=== PATIENT | female | born 1955 | race African-American/Black ===

== ENCOUNTER 2017-04-14 05:56 | Day surgery (SDC) | payer BC ==
--- NOTE | ~2017-04-14 | EGD ---
EGD REPORT [facility] [address] [address] NAME: VIDHI SOLIS : [birth year] STATUS : REG [place]#: [id number] AGE: 61 ADM/REG DATE : 04/14/17 MR#: [id number] REPORT SERV DATE: 04/14/17 DICTATED BY: DATE: REPORT STATUS : Draft TRANSCRIBED BY: [employer] DATE: 04/14/17 Endoscopy Center Patient Name: Vidhi Solis Date of : 1955 Attending MD: KILLIAN AMAYA MD Procedure Date No Time: 04/14/2017 Procedure: Upper GI endoscopy Indications: Dysphagia, Reflux esophagitis Medicines: Monitored Anesthesia Care Complications: No immediate complications. Procedure: Pre-Anesthesia Assessment: - ASA Grade Assessment: II - A patient with mild systemic disease. After obtaining informed consent, the endoscope was passed under direct vision. Throughout the procedure, the patient's blood pressure, pulse, and oxygen saturations were monitored continuously. The GIF [id number] was introduced through the mouth, and advanced to the third part of duodenum. The upper GI endoscopy was accomplished without difficulty. The patient tolerated the procedure well. Findings: A medium-sized hiatus hernia was present. LA Grade B (one or more mucosal breaks greater than 5 mm, not extending between the tops of two mucosal folds) esophagitis was found in the lower third of the esophagus. A benign-appearing, intrinsic mild stenosis measuring less than one cm (in length) was found at the gastroesophageal junction and was traversed. Biopsies were taken with a cold forceps for histology. A guidewire was placed and the scope was withdrawn. Dilation was performed with a Savary dilator with no resistance at 51 Fr and no resistance at 54 Fr. A single localized small erosion was found in the prepyloric region of the stomach. Biopsies were taken with a cold forceps for histology. No other significant abnormalities were identified in a careful examination of the stomach. There is no endoscopic evidence of ulceration or varices in the entire examined stomach. The examined duodenum was normal. There is no endoscopic evidence of inflammation, mucosal abnormalities or ulceration in the entire examined duodenum. The cardia and gastric fundus were otherwise normal on retroflexion. Impression: - Hiatus hernia. EGD REPORT [address] [place]. [address] NAME: VIDHI SOLIS : [birth year] [place] [facility] [place] [id number] AGE: 61 ADM/REG DATE : 04/14/17 MR#: [id number] REPORT SERV DATE: 04/14/17 DICTATED BY: DATE: REPORT STATUS : Draft TRANSCRIBED BY: [employer] DATE: 04/14/17 - LA Grade B reflux esophagitis. - Benign-appearing esophageal stricture. Biopsied. Dilated. - Erosive gastropathy. Biopsied. - Normal examined duodenum. Recommendation: - Patient has a contact number available for emergencies. The signs and symptoms of potential delayed complications were discussed with the patient. Return to normal activities tomorrow. Written discharge instructions were provided to the patient. - Return to previous diet. - Discharge patient to home. - Change Prilosec (omeprazole) to pantoprazole 40 mg twice daily. It is essential that you take the medication in order for the esophagus to heal and stay healed, to prevent scar tissue build up and cancer risk. - Await pathology results. Procedure Code(s): --- Professional --- 76511, Esophagogastroduodenoscopy, flexible, transoral; with insertion of guide wire followed by passage of dilator(s) through esophagus over guide wire 98364, Esophagogastroduodenoscopy, flexible, transoral; with biopsy, single or multiple Diagnosis Code(s): --- Professional --- K44.9, Diaphragmatic hernia without obstruction or gangrene K21.0, Gastro-esophageal reflux disease with esophagitis K22.2, Esophageal obstruction K31.9, Disease of stomach and duodenum, unspecified R13.10, Dysphagia, unspecified CPT copyright 2013 [employer]. All rights reserved. The codes documented in this report are preliminary and upon rough rice tender review may be revised to meet current compliance requirements. KILLIAN AMAYA MD 04/14/2017 7:24 AM This report has been signed electronically. Number of Addenda: 0 Note Initiated On: 04/14/2017 6:57 AM EGD REPORT [facility] [address] [id number] NAME: VIDHI SOLIS MYCHAL : [birth year] [place]US [place] [facility] [place] [facility] [place] [id number] AGE: 61 ADM/REG DATE : 04/14/17 MR#: [id number] REPORT SERV DATE: 04/14/17 DICTATED BY: DATE: REPORT STATUS : Draft TRANSCRIBED BY: [email or web address] DATE: 04/14/17 Scope Withdrawal Time 0 hours 0 minutes 0 seconds [address] [id number]
[~2017-04-14 05:56] MED LIST: ASAB PO
== END 2017-04-14 23:59 | disposition home health service (06) ==
LOC: DMU 05:56
PROVIDERS: Internal Medicine Gastroenterology
PROC: 0DB78ZX Excision of Stomach, Pylorus, Via Natural or Artificial Opening Endoscopic, Diagnostic (ICD-10-PCS; 2017-04-14)
PROC: 0DB48ZX Excision of Esophagogastric Junction, Via Natural or Artificial Opening Endoscopic, Diagnostic (ICD-10-PCS; principal; 2017-04-14 07:00)
PROC: 0D748ZZ Dilation of Esophagogastric Junction, Via Natural or Artificial Opening Endoscopic (ICD-10-PCS; 2017-04-14 07:00)
DX: K29.50 Unspecified chronic gastritis without bleeding (principal); K21.0 Gastro-esophageal reflux disease with esophagitis; K44.9 Diaphragmatic hernia without obstruction or gangrene; I10 Essential (primary) hypertension; K22.2 Esophageal obstruction; Z98.890 Other specified postprocedural states
CPT/HCPCS: 88305